=== PATIENT | male | born 1955 | race Two or more races ===

== ENCOUNTER 2023-05-09 07:57 | Day surgery (SDC) | payer MEDICARE, OTHER ==
[2023-05-09 08:29] VITALS: BP 116/72
[2023-05-09] MEDS ORDERED: VITAMIN C100 MG PO (08:33)
[2023-05-09] MEDS ORDERED: ASPIRIN81 MG PO (08:33)
[2023-05-09] MEDS ORDERED: PRAVASTATIN SOD10 MG PO (08:33)
[2023-05-09] MEDS ORDERED: MULTI VITAMIN1 EACH (08:33)
[2023-05-09] MEDS ORDERED: MELOXICAM5 MG PO (08:33)
[2023-05-09] MEDS ORDERED: LISINOPRIL5 MG PO (08:33)
--- NOTE | 2023-05-09 11:55 | NUR ---
05/09/23 1155 Sheets,Qi 1119 PT ARRIVED TO PACU ON 2L VIA NC, PT WAKES EASILY AND IS REORIENTED TO PACU AND EASILY FALLS BACK TO SLEEP. PT PASSING GAS OFF AND ON. 1150 PT WAKES AND O2 REMOVED. HOB INCREASED AND PT SIPPING JUICE WITH NO CONCERNS.
[2023-05-09 12:00] VITALS: BP 132/78
--- NOTE | 2023-05-09 13:14 | OR ---
[facility] [address] [place], [place] [address] Signed DATE OF OPERATION: 05/09/2023 SURGEON: Cecilio Agrawal MD PREOPERATIVE DIAGNOSES: 1. Rectal bleeding. 2. Son with ulcerative colitis. POSTOPERATIVE DIAGNOSES: 1. Minimal internal hemorrhoids. 2. Small internal anal skin tag x1. 3. 4 mm polyp in proximal right colon. PROCEDURE: Colonoscopy with hot biopsy. ESTIMATED BLOOD LOSS: None. INDICATIONS: Timur is a 68-year-old gentleman, asked to see me for a colonoscopy. His tells me he has been having intermittent rectal bleeding. Apparently, he has had some memory issues. We know he is on aspirin and meloxicam on a daily basis. No family history of colon cancer or polyps. Apparently their son has ulcerative colitis. They tell me I did his colonoscopy years ago. Apparently I helped the as well with her colonoscopy. They are very familiar with our MiraLAX and Gatorade bowel prep. Timur thinks maybe the rectal bleeding has stopped. He thinks maybe he had a colonoscopy sometime before the age of 51. However, he cannot remember why he had that procedure. His was not with him at that time. In the office, I gave them a pamphlet on colonoscopy. We reviewed the nature of the test. There is risk including, but not limited to gas bloating, crampy abdominal pain, bleeding, perforation requiring surgery, and missed diagnosis. We reviewed the need for IV conscious sedation. They had expressed understanding and wished to proceed. DESCRIPTION OF PROCEDURE: Timur was taken into our endoscopy suite and placed in the left lateral decubitus position. He was given 5 mg of Versed and 200 mcg of fentanyl to cover the case. He has good sphincter tone. Not much in the way of external hemorrhoids. I could barely touch the bottom of his prostate as he is a large man. There were no masses. The adult colonoscope was introduced and advanced under direct visualization of the camera. We Electronically Signed By: CECILIO AGRAWAL MD 05/09/23 1314 PATIENT NAME: TIMUR LUGO OPERATIVE REPORT DATE OF : 57 REPORT #: [id number] PHYSICIAN: CECILIO AGRAWAL MD PCP: DAFNE KELYL MD REPORT IS CONFIDENTIAL AND NOT TO BE RELEASED WITHOUT AUTHORIZATION [facility] [address] [place], [place] [address] Signed had to give some extra sedation as we came around the hepatic flexure into the cecum itself. His prep was good. A few areas of liquid stool which we irrigated and suctioned out quite readily. The scope was then slowly withdrawn. We took pictures throughout for photodocumentation. He had a tiny 4 mm polyp in the proximal right colon. This was easily removed with hot biopsy forceps. We did not see any diverticulosis. Once in the rectum, the scope was retroflexed. He does have minimal to moderate internal hemorrhoid columns and one small internal anal skin tag. After this, the gas was suctioned out and the colonoscope removed. Timur tolerated the procedure quite well. RECOMMENDATIONS: I will see Timur back in my office in 7 to 14 days to review his results. Cecilio Agrawal MD ALB/MODL /[id number] cc: MD Cecilio Valadez MD Copies: DAFNE KELLY DMD, ANDREW L MD ~ Electronically Signed By: CECILIO AGRAWAL MD 05/09/23 1314 PATIENT NAME: TIMUR LUGO OPERATIVE REPORT DATE OF : 57 REPORT #: [id number] PHYSICIAN: CECILIO AGRAWAL MD PCP: DAFNE KELLY MD REPORT IS CONFIDENTIAL AND NOT TO BE RELEASED WITHOUT AUTHORIZATION
--- NOTE | 2023-05-12 11:37 | PATH ---
[facility] [address] [place], [place] [address] Signed SPECIMEN(S): A PROX. ASCENDING COLON POLYP SPECIMEN SOURCE: A. PROX. ASCENDING COLON POLYP CLINICAL HISTORY: Rectal bleeding FINAL PATHOLOGIC DIAGNOSIS: Proximal ascending colon polyp: - Tubular adenoma (one fragment). JVR:[facility] MICROSCOPIC EXAMINATION: Histologic sections of all submitted blocks are examined by light microscopy. These findings, together with the gross examination, support the pathologic diagnosis. GROSS DESCRIPTION: The specimen, labeled and designated "Gilbert, 1" and designated on the requisition "polypectomy, ascending/right, proximal," is received in formalin and consists of one sepulveda soft tissue fragment, 0.2 cm. Entirely submitted in (A1). AC (under the direct supervision of a pathologist) The Gross Description was prepared using a voice recognition system. The report was reviewed for accuracy; however, sound-alike word errors, addition and/or deletions may occur. If there is any question about this report, please contact Client Services. ADDITIONAL NOTES: Immunohistochemical and/or in situ hybridization studies if performed in this case included appropriate positive controls that reacted as expected. This test was developed and its performance characteristics determined by [facility]. It has not been cleared or approved by the U.S. Food and Drug Administration. The FDA has determined that such clearance or approval is not necessary. This test is used for clinical purposes. It should not be regarded as investigational or for research. [facility] is certified under the Clinical Laboratory Improvement Amendments of 1988 (CLIA) as qualified to perform high complexity clinical laboratory testing. PATIENT NAME: YFN GILBERT PATHOLOGY DATE OF : 57 REPORT #: [id number] PHYSICIAN: MIGNON ATKINSON PCP: DAFNE KELLY MD REPORT IS CONFIDENTIAL AND NOT TO BE RELEASED WITHOUT AUTHORIZATION [place] [id number] [place], [place] [address] Signed PERFORMING LABORATORY: Technical component was performed by [facility], [address] [place] [address] (CLIA# [id number]). Professional interpretation was performed by [facility], [address] [place] [id number] (CLIA#: [id number]). Diagnostician: Yared Harvey MD Pathologist Electronically Signed 05/12/2023 Copies: ~ PATIENT NAME: YFN GILBERT PATHOLOGY DATE OF : 57 REPORT #: [id number] PHYSICIAN: MIGNON ATKINSON PCP: DAFNE KELLY MD REPORT IS CONFIDENTIAL AND NOT TO BE RELEASED WITHOUT AUTHORIZATION
== END 2023-05-09 12:19 | disposition home or self-care (01) ==
LOC: DS 07:57
PROVIDERS: ATTEND Colon & Rectal Surgery
PROC: 0DBF8ZX Excision of Right Large Intestine, Via Natural or Artificial Opening Endoscopic, Diagnostic (ICD-10-PCS; principal; 2023-05-09 09:45)
DX: K62.5 Hemorrhage of anus and rectum (principal); D12.2 Benign neoplasm of ascending colon; K64.8 Other hemorrhoids; I10 Essential (primary) hypertension; E78.2 Mixed hyperlipidemia; Z79.899 Other long term (current) drug therapy
CPT/HCPCS: 99153; G0500; J0690; J2250; J3010